=== PATIENT | female | born 1980 | race Hispanic/Latino ===

== ENCOUNTER → 2017-07-22 | Outpatient (CLI) | payer OTHER ==
--- NOTE | 2017-07-22 13:54 | Diagnostic Imaging Report ---
PROCEDURE:ABDOMINAL ULTRASOUND COMPARISON:[facility], US, US ABDOMEN COMPLETE, 06/06/2015, 8:22. INDICATIONS:ABDOMEN PAIN FINDINGS: Liver: 13.9 cm. Mildly increased hepatic parenchymal echogenicity. Mildly hyperechoic lesion in the posterior aspect of the right hepatic lobe, measuring 2.6 x 1.9 x 3.0 cm, which is less defined than on prior exam (previously measured 3.0 x 2.4 x 2.8 cm). Stable 1.8 x 1.5 x 2.2 cm rounded, relatively well-circumscribed hyperechoic lesion in the anterior right lobe. A previously described 1.0 cm hyperechoic lesion in the right hepatic lobe is not seen on the current exam. No other focal lesions. Main portal vein: 0.8 cm. Hepatopetal flow. Gallbladder: Absent Common Bile Duct: 0.4 No echogenic filling defect. Sonographic Mcwilliams's sign: Negative Right kidney: 11.5 cm. No solid or cystic mass, echogenic calculi, or hydronephrosis. Normal parenchymal echogenicity. Left kidney: 14.0 cm. No solid masses, echogenic calculi, or hydronephrosis. Normal parenchymal echogenicity. Interval increase in size of 4.3 x 4.6 x 4.8 cm mostly anechoic, partially exophytic lesion in the inferior pole, which contains a single, thin, nonvascular septation. Spleen: 11.0 cm. No focal lesions. Pancreas: The visualized portions of the pancreas are normal. Inferior vena cava: Normal. Aorta: Normal. Ascites: None. CONCLUSION: 1. 2 hyperechoic lesions are again noted in the right hepatic lobe, one of which is stable and the other is slightly decreased in size. A previously described third lesion is not visualized on the current exam. These likely represent hemangiomas. Recommend contrast enhanced MRI abdomen with liver mass protocol for further evaluation, if not previously performed. 2. Interval increase in size of 4.8 cm minimally complex cyst in the left kidney. This can also be assessed with above-mentioned MRI. Rc Murray M.D. Dictated by: Rc Murray M.D. on 07/22/2017 at 13:53 Electronically approved by: Rc Murray M.D. on 07/22/2017 at 13:53
== END ==
LOC: US 11:29
PROVIDERS: ATTEND Internal Medicine
DX: R10.9 Unspecified abdominal pain (principal); D18.03 Hemangioma of intra-abdominal structures; N28.1 Cyst of kidney, acquired
CPT/HCPCS: 76700